=== PATIENT | male | born 1995 | race Two or more races ===

== ENCOUNTER 2020-04-10 20:27 | Emergency (ER) | payer OTHER ==
--- NOTE | 2020-04-10 20:54 | EDM.PDOC ---
ED HPI GENERAL MEDICAL PROBLEM - General Chief Complaint: Head Injury Stated Complaint: HEAD INJURY Time Seen by Provider: 04/10/20 20:53 Source of Information: Reports: Patient, RN History Limitations: Reports: No Limitations - History of Present Illness INITIAL COMMENTS - FREE TEXT/NARRATIVE: ED ambulatory, brought by mother, states at work at [employer] box of juice fell on back of head pushed him forward into lift jamil struck forehead and nose, no loss of consciousness. Juice estimated weight 20# and fell about 20 feet. Burney vision tunneling briefly after injury. No vomiting, No blurred vision at present Right Nare Pain Score (Numeric/FACES): 2 - Related Data Allergies Allergy/AdvReac Type Severity Reaction Status Date / Time No Known Allergies Allergy Verified 04/10/20 20:41 Home Meds: Home Meds . [No Known Home Meds] 04/10/20 [History] ED ROS GENERAL - Review of Systems Review Of Systems: Comprehensive ROS is negative, except as noted in HPI. ED EXAM, HEAD INJURY - Physical Exam Exam: See Below Exam Limited By: No Limitations General Appearance: Alert, Mild Distress Head: Normocephalic, Scalp Tenderness (right occipital), Facial Tenderness (right forehead and right side of nose) Eyes: Bilateral Eye: EOMI, PERRL (4mm) Ears: Normal External Exam, Normal TMs Nose: Normal Inspection, Normal Mucousa Throat/Mouth: Normal Inspection, Normal Lips, Normal Voice, No Airway Compromise Neck: Paraspinous Muscle Tender, Spinous Processes Tender (mid) Respiratory: No Respiratory Distress, Lungs Clear, Normal Breath Sounds Cardiovascular: Normal Peripheral Pulses, Regular Rate, Rhythm GI/Abdominal Exam: Normal Bowel Sounds, Soft, Non-Tender Back Exam: Normal Inspection, Full Range of Motion Extremities: Normal Inspection Neurologic: No Motor/Sensory Deficits, Alert, Normal Mood/Affect, Oriented x 3, Other (GCS 15) Skin: Normal Color, Warm/Dry - More Coma Score Best Eye Response (More): (4) Open Spontaneously Best Verbal Response (More): (5) Oriented Best Motor Response ([place]): (6) Obeys Commands Course - Vital Signs Last Recorded V/S: Last Vital Signs Temp 99.4 F 04/10/20 20:35 Pulse 94 04/10/20 20:35 Resp 16 11/18/20 20:35 BP 143/85 H 04/10/20 20:35 Pulse Ox 95 04/10/20 20:35 Departure - Departure Time of Disposition: 23:01 Disposition: Home, Self-Care 01 Condition: Good Clinical Impression: Strain of neck muscle, Concussion with no loss of consciousness, Contusion of nose, initial encounter, Work related injury Contusion of head Qualifiers: Encounter type: initial encounter Contusion of head detail: scalp Qualified Code(s): S00.03XA - Contusion of scalp, initial encounter - Discharge Information *PRESCRIPTION DRUG MONITORING PROGRAM REVIEWED*: No *COPY OF PRESCRIPTION DRUG MONITORING REPORT IN PATIENT ANDREA: No Instructions: Concussion, Adult, [id number], Facial or Scalp Contusion, [id number] Referrals: PCP,None [Primary Care Provider] - Forms: ED Department Discharge Additional Instructions: tylenol 650mg every 4 hours as needed for discomfort may alternate with ibuprofen 600mg every 6 hours as needed for discomfort rest advance activity as tolerated clinic follow up on Wednesday if not improving ice to bruised area Urgent follow up, confusion, repeated vomiting or blurred vision Incedental finding small 7mm thyroid nodule need to disuss follow up with primary care in clinic Sepsis Event Note (ED) - Focused Exam Vital Signs: Vital Signs Temp Pulse Resp BP Pulse Ox 04/10/20 20:35 99.4 F 94 16 143/85 H 95
--- NOTE | 2020-04-10 21:54 | CT ---
PROCEDURE INFORMATION: Exam: CT Head Without Contrast Exam date and time: 04/10/2020 9:07 PM Age: 24 years old Clinical indication: 20# box fell 20ft on him, headache, neck pain TECHNIQUE: Imaging protocol: Computed tomography of the head without contrast. Radiation optimization: All CT scans at this facility use at least one of these dose optimization techniques: automated exposure control; mA and/or kV adjustment per patient size (includes targeted exams where dose is matched to clinical indication); or iterative reconstruction. COMPARISON: No relevant prior studies available. FINDINGS: Limitations: Streak artifact limits evaluation at the level of the skull base. Brain: No definite evidence of acute intracranial hemorrhage, within the limits of the study. Alas-white matter differentiation is normal. Cerebral ventricles: No ventriculomegaly. Bones/joints: No acute fracture. Paranasal sinuses: Unremarkable. Mastoid air cells: Unremarkable. Soft tissues: Unremarkable. IMPRESSION: 1. No acute findings. 2. Streak artifact limits evaluation at the level of the skull base.
--- NOTE | 2020-04-10 22:44 | CT ---
PROCEDURE INFORMATION: Exam: CT Cervical Spine Without Contrast Exam date and time: 04/10/2020 9:07 PM Age: 24 years old Clinical indication: Neck pain; Additional info: 20# box fell 20ft on him , h/a, neck pain TECHNIQUE: Imaging protocol: Computed tomography images of the cervical spine without contrast. Radiation optimization: All CT scans at this facility use at least one of these dose optimization techniques: automated exposure control; mA and/or kV adjustment per patient size (includes targeted exams where dose is matched to clinical indication); or iterative reconstruction. COMPARISON: No relevant prior studies available. FINDINGS: Limitations: Beam hardening artifact limits evaluation of the lower cervical and upper thoracic spine. Bones/joints: No acute fracture. Discs/Spinal canal/Neural foramina: No significant spinal canal or neuroforaminal stenosis. Soft tissues: Unremarkable. Thyroid: Multinodular thyroid with the largest nodule measuring 7 mm. No follow-up imaging is recommended. Lymph nodes: Right jugulodigastric lymph node is at the upper limits of normal for size, measuring 1.5 by 1.2 cm (series 7, image 48). 1.5 by 0.9 cm left jugulodigastric lymph node (series 7, image 49), also at the upper limits of normal for size. Lungs: Mild biapical pleuroparenchymal scarring in the visualized portion of the lung apices. IMPRESSION: No acute cervical spine fracture. COMMENTS: Consistent with the [employer]'s Incidental Findings Committee white paper (J Am Jennifer Radiol 2015): In patients under 35 years old with an incidental thyroid nodule equal to or greater than [address], MRI or extrathyroidal US, further evaluation with dedicated thyroid US is recommended for patients with normal life expectancy and without comorbidities. For smaller nodules without suspicious features, no further evaluation or follow up is recommended.
== END 2020-04-10 23:12 | disposition home or self-care (01) ==
LOC: DL.ED 20:27
DX: S06.0X0A Concussion without loss of consciousness, initial encounter (principal); S16.1XXA Strain of muscle, fascia and tendon at neck level, initial encounter; S00.03XA Contusion of scalp, initial encounter; S00.33XA Contusion of nose, initial encounter; W20.8XXA Other cause of strike by thrown, projected or falling object, initial encounter; Y99.0 Civilian activity done for income or pay
CPT/HCPCS: 70450; 72125; 99283-25

== ENCOUNTER 2022-06-06 18:32 | Emergency (ER) | payer OTHER, BC | END 2022-06-06 20:30 | disposition home or self-care (01) | LOC: DL.ED 18:32 | DX: S16.1XXA Strain of muscle, fascia and tendon at neck level, initial encounter (principal); S80.11XA Contusion of right lower leg, initial encounter; V89.2XXA Person injured in unspecified motor-vehicle accident, traffic, initial encounter; Y92.410 Unspecified street and highway as the place of occurrence of the external cause | CPT/HCPCS: 70450; 72125; 99284 ==